=== PATIENT | female | born 1955 | race Caucasian/White ===

== ENCOUNTER 2016-10-15 23:59 | Emergency (ER) | payer BC, MEDICAID ==
[~2016-10-15] VITALS: Ht 177.8 cm; Wt 86.5 kg
[2016-10-16] MEDS ORDERED: LORazepam 1MG TABLET PO ONE (00:30)
[2016-10-16] MEDS ORDERED: LORazepam 1MG TABLET ONE (00:47)
[2016-10-16 01:01] LABS: HEMOGLOBIN 14.9 g/dL (11.7-16.4)
[2016-10-16 01:09] LABS: BLOOD UREA NITROGEN 24 mg/dL (7-18)
[2016-10-16 01:14] LABS: ASPARTATE AMINO TRANSFERASE 20 U/L (15-37)
[2016-10-16 01:19] LABS: IS PT STATUS REG ER OR PRE ER? YES
[2016-10-16 01:28] VITALS: BP 119/79
== END 2016-10-16 01:46 ==
LOC: ED 10-16 01:40
DX: R06.00 Dyspnea, unspecified (principal); R07.89 Other chest pain; F41.1 Generalized anxiety disorder; F43.0 Acute stress reaction; Z88.6 Allergy status to analgesic agent
CPT/HCPCS: 36415; 71020; 80053; 83880; 84484; 85025; 93005

== ENCOUNTER 2019-09-17 01:14 | Emergency (ER) | payer BC, MEDICAID, OTHER ==
[~2019-09-17] VITALS: Ht 177.8 cm; Wt 84.1 kg
[2019-09-17 01:15] VITALS: BP 160/93
--- NOTE | 2019-09-17 01:29 | NUR ---
PT UP TO RESTROOM FOR URINE SAMPLE AT THIS TIME
[2019-09-17] MEDS ORDERED: CEFTRIAXONE 250 MG IM ONE (01:30)
[2019-09-17] MEDS ORDERED: AZITHROMYCIN 500 MG TABLET PO ONE (01:30)
[2019-09-17] MEDS ORDERED: CEFTRIAXONE 250 MG ONE (01:36)
[2019-09-17] MEDS ORDERED: AZITHROMYCIN 250 MG TABLET ONE (01:36)
[2019-09-17 01:59] LABS: CLUE CELLS NONE SEEN (NONE SEEN); WET PREP WBCS MANY (FEW)
[2019-09-17 02:00] LABS: CULTURE INDICATED? YES; MICROSCOPIC INDICATED
== END 2019-09-17 02:25 | disposition home or self-care (01) ==
LOC: ED 02:00
DX: N39.0 Urinary tract infection, site not specified (principal); A54.9 Gonococcal infection, unspecified; Z85.3 Personal history of malignant neoplasm of breast
CPT/HCPCS: 81001; 87077; 87086; 87186; 87210; 87491; 87591; 87808; 96372; 99283; J0696

== ENCOUNTER 2020-01-25 21:45 | Emergency (ER) | payer BC, MEDICAID ==
[~2020-01-25] VITALS: Ht 175.3 cm; Wt 84.8 kg
[2020-01-25 21:50] VITALS: BP 121/83
--- NOTE | 2020-01-25 22:04 | NUR ---
PROVIDER TO BEDSIDE.
== END 2020-01-25 22:34 | disposition home or self-care (01) ==
LOC: ED 22:00
DX: T62.2X1A Toxic effect of other ingested (parts of) plant(s), accidental (unintentional), initial encounter (principal); Y92.89 Other specified places as the place of occurrence of the external cause
CPT/HCPCS: 99283

== ENCOUNTER 2020-04-13 11:27 | Emergency (ER) | payer MEDICAID ==
[~2020-04-13] VITALS: Ht 172.7 cm; Wt 89.2 kg
--- NOTE | 2020-04-13 12:20 | NUR ---
PT AMBULATORY TO ROOM 36 W/ C/O SOB X 4 DAYS AND SORE THROAT X 2 MONTHS. PT STATES HER GOT COVID 02/07/2020. PT STATES SHE DID NOT GET TESTED AT THAT TIME. PT NOTED TO BE 88% RA WHEN PLACED IN ROOM PLACED ON 2L NC AT THAT TIME. NOW SATING MID 90'S. PT RESTING ON GURNEY. NADN. MONITORS IN PLACE.
[2020-04-13] MEDS ORDERED: MAALOX/HYOSCYAMINE/LIDOCAINE 45 ML BTL PO ONE (12:30)
[2020-04-13] MEDS ORDERED: MAALOX/HYOSCYAMINE/LIDOCAINE 45 ML BTL ONE (12:42)
--- NOTE | 2020-04-13 13:00 | NUR ---
PT RESTING ON GURNEY WITH EYES CLOSED. NAD, VSS. PT DENIES ANY NEEDS AT THIS TIME. PT STATES THAT SHE "FEELS MUCH BETTER FOLLOWING GI COCKTAIL". CALL LIGHT WITHIN REACH, FALL PRECAUTIONS IN PLACE.
--- NOTE | 2020-04-13 13:22 | NUR ---
Patient given discharge instructions and they have confirmed that they understand the instructions. Patient ambulatory with steady gait.
[2020-04-13 13:23] VITALS: BP 127/89
== END 2020-04-13 13:25 | disposition home or self-care (01) ==
LOC: ED 12:29
DX: K20.9 Esophagitis, unspecified (principal); R06.02 Shortness of breath; R94.31 Abnormal electrocardiogram [ECG] [EKG]; J02.9 Acute pharyngitis, unspecified; Z85.3 Personal history of malignant neoplasm of breast
CPT/HCPCS: 71045; 93005; 99283

== ENCOUNTER 2020-06-30 17:24 | Emergency (ER) | payer MEDICAID ==
[~2020-06-30] VITALS: Ht 175.3 cm; Wt 79.4 kg
--- NOTE | 2020-06-30 18:12 | NUR ---
PT C/O RIGHT ARM PAIN, REDNESS, SWELLING. PT CLEANING A BACK YARD AND WAS POKED BY UNKNOWN OBJECT ON FRIDAY. PT C/O BEING SICK ON FRIDAY/FRIDAY, FELT BETTER YESTERDAY. REDNESS/SWELLING WENT AWAY FOR A COUPLE DAYS AND NOW ITS BACK.
[2020-06-30] MEDS ORDERED: LIDOCAINE-MPF 1%, 5ML ONE (18:29)
[2020-06-30] MEDS ORDERED: DIPH,PERTUSS(ACELL),TET VAC/PF 0.5 ML IM-VACC ONE ×2 (18:29→18:30)
[2020-06-30] MEDS ORDERED: CLINDAMYCIN 300 MG CAPSULE ONE (18:29)
[2020-06-30] MEDS ORDERED: LIDOCAINE-MPF 1%, 5ML INFIL ONE (18:30)
[2020-06-30] MEDS ORDERED: CLINDAMYCIN 300 MG CAPSULE PO ONE (18:30)
[2020-06-30 18:43] VITALS: BP 107/67
--- NOTE | 2020-06-30 18:43 | NUR ---
BREAK RN: PT RESTING IN ROOM. FAMILY AT BEDSIDE. CALL LIGHT IN PLACE. WILL CONTINUE TO MONITOR WHILE PRIMARY RN IS ON BREAK.
[2020-06-30 18:50] LABS: BASOPHILS % (AUTO) 1 % (0-1); EOSINOPHILS % (AUTO) 5 % (1-7); LYMPHOCYTES % (AUTO) 33 % (22-44); MEAN CORPUSCULAR HEMOGLOBIN 29.5 pg (27.0-34.8); MEAN CORPUSCULAR HGB CONC 33.1 g/dL (32.4-35.8); MEAN PLATELET VOLUME 7.9 fL (7.4-10.4); MONOCYTES % (AUTO) 10 % (2-9); NEUTROPHILS % (AUTO) 51 % (42-75); PLATELET COUNT 322 x10^3/uL (130-400); RED BLOOD COUNT 4.95 x10^6/uL (3.82-5.3); RED CELL DISTRIBUTION WIDTH 15.3 % (9.6-15.2)
[2020-06-30 18:54] LABS: MD NO
[2020-06-30 18:57] LABS: CREATININE 0.97 mg/dL (0.55-1.02)
[2020-06-30 19:04] LABS: ANION GAP 3 mmol/L (5-15); CHLORIDE 106 mmol/L (98-107)
--- NOTE | 2020-06-30 20:09 | NUR ---
TASK RN: DC EDUCATION PROVIDED, PT DEMONSTRATES UNDERSTANDING. PT AMBULATED STEADILY TO DC WITH RN
== END 2020-06-30 20:11 | disposition home or self-care (01) ==
LOC: ED 19:11
DX: L02.413 Cutaneous abscess of right upper limb (principal); L03.114 Cellulitis of left upper limb; C50.919 Malignant neoplasm of unspecified site of unspecified female breast; F17.200 Nicotine dependence, unspecified, uncomplicated
CPT/HCPCS: 10060; 36415; 80048; 82040; 85025; 90471; 90715; 99283

== ENCOUNTER 2020-08-16 00:07 | Emergency (ER) | payer MEDICAID, OTHER ==
[~2020-08-16] VITALS: Ht 175.3 cm; Wt 81.1 kg
--- NOTE | 2020-08-16 00:16 | NUR ---
Pt arrived on unit. Assumed care.
--- NOTE | 2020-08-16 00:27 | NUR ---
Provider COVID swabbed pt.
--- NOTE | 2020-08-16 00:27 | NUR ---
Pt ambulating to bathroom.
--- NOTE | 2020-08-16 00:38 | NUR ---
Bedside glucose 139. UA collected and tubed to lab.
[2020-08-16 00:47] LABS: MICROSCOPIC AUTO
[2020-08-16] MEDS ORDERED: CEFDINIR 300 MG CAPSULE ONE (01:19)
[2020-08-16 01:24] VITALS: BP 131/89
[2020-08-16] MEDS ORDERED: CEFDINIR 300 MG CAPSULE PO ONE (01:30)
--- NOTE | 2020-08-16 01:32 | NUR ---
Omnicef give. Pt agrees with and understands discharge plan and instructions.
== END 2020-08-16 01:35 | disposition home or self-care (01) ==
LOC: ED 01:25
DX: U07.1 COVID-19 (principal); N30.00 Acute cystitis without hematuria; B34.9 Viral infection, unspecified; F17.210 Nicotine dependence, cigarettes, uncomplicated; Z85.3 Personal history of malignant neoplasm of breast
CPT/HCPCS: 81001; 82962; 87635; 99283; 99406

== ENCOUNTER 2020-10-31 21:44 | Emergency (ER) | payer OTHER ==
[~2020-10-31] VITALS: Ht 175.3 cm; Wt 79.0 kg
--- NOTE | 2020-10-31 22:10 | NUR ---
pt resting quietly in bed with eyes closed, arousable to voice. md in to assess, no signs or symptoms of acute distress noted, pt breathing with even unlabored respirations
[2020-10-31 23:45] VITALS: BP 132/72
--- NOTE | 2020-10-31 23:45 | NUR ---
Patient given discharge instructions and they have confirmed that they understand the instructions. Patient ambulatory with crutches.
== END 2020-10-31 23:54 | disposition home or self-care (01) ==
LOC: ED 23:40
DX: S93.491A Sprain of other ligament of right ankle, initial encounter (principal); M79.89 Other specified soft tissue disorders; X50.1XXA Overexertion from prolonged static or awkward postures, initial encounter; Y93.89 Activity, other specified; Y92.89 Other specified places as the place of occurrence of the external cause; Y99.8 Other external cause status
CPT/HCPCS: 99283